=== PATIENT | male | born 1970 | race Caucasian/White ===

== ENCOUNTER → 2021-06-04 | Day surgery (SDC) | payer OTHER ==
[~2021-06-04] VITALS: Ht 177.8 cm; Wt 104.3 kg
[~2021-06-04] MED LIST: ACETAMINOPHEN500 M1 PO; BENADRYL25 MG PO; CELEXA20 MG PO; LISINOPRIL-HCT1 EAC2 PO; LOVASTATIN10 MG PO
== END | disposition home or self-care (01) ==
LOC: FAS 05-14 11:00
DX: Z12.11 Encounter for screening for malignant neoplasm of colon (principal); D12.8 Benign neoplasm of rectum; I10 Essential (primary) hypertension
CPT/HCPCS: J2704; J7120